=== PATIENT | female | born 1940 | race Caucasian/White ===

== ENCOUNTER 2019-06-12 14:07 | Inpatient (IN) | payer MEDICARE, OTHER, SELFPAY ==
[2019-06-12] VITALS (61 sets, daily range): BP systolic 85–149; BP diastolic 52–106; PULSE 68–156; RESP 14–35; TEMP 36.4; O2SAT 77–98; BMI 41.1
--- NOTE | 2019-06-12 14:17 | ECG_ITS ---
Measurements Intervals [place] Rate: 155 P: GA: 0 QRS: 28 QRSD: 79 T: -5 QT: 273 QTc: 439 ATRIAL FIBRILLATION WITH RAPID VENTRICULAR RESPONSE LOW QRS VOLTAGE [QRS DEFLECTION < 0.5/1.0 mV IN LIMB/CHEST LEADS] POSSIBLE ANTERIOR MYOCARDIAL INFARCTION , PROBABLY OLD [30 ms Q WAVE IN V3/V4, OR R < 0.2 mV IN V4] CRITICAL TEST RESULT No previous ECG available for comparison Electronically Signed On 06-12-2019 18:24:47 CDT by Ran Hauser M.D. [id number]
--- NOTE | 2019-06-12 14:17 | XR_ITS ---
WS: [id number] XR chest 1V portable [id number] REASON FOR EXAM: sob FINDINGS: Cardiomegaly is noted. There is scarring in both lung storm but no active pneumonia, pleural effusion, pulmonary edema, or mass effect. The hilum and apices are normal. There is postop changes in the region of the thyroid on the left side. XR/XR chest 1V portable [id number] IMPRESSION: Cardiomegaly
--- NOTE | 2019-06-12 14:23 | ED_ITS ---
HPI - SOB/Dyspnea General: Chief Complaint: Shortness of Breath/Dyspnea Stated Complaint: sob,weakness,swelling,diarrhea Time Seen by Provider: 06/12/19 14:19 Source: patient Mode of arrival: ambulatory Limitations: no limitations History of Present Illness: HPI Narrative: 79-year-old female with a history of congestive heart failure states she has been having lower extremity edema along with increased weight gain and shortness of breath over the last week. She states that over the last day or 2 she is also had diffuse abdominal pain she rates an 8 out of 10. Patient does have quite a bit of swelling here and is in A. fib which is new onset. She denies any chest pain or fever. MD elicited complaint: shortness of breath Associated symptoms: Reports abdominal pain; Deny chest pain or fever(s) Review of Systems Const: Denies: fever, chills, body aches or change in appetite Eyes: Denies: blurry vision or eye discomfort ENMT: Denies: throat pain or dental pain Card: Denies: chest pain Resp: Reports: shortness of breath GI: Reports: abdominal pain : Denies: painful urination Musc: Reports: joint swelling Skin/Breast: Denies: rash Neuro: Denies: headache Psych: Denies: depression Alex/Lymph: Denies: easy bruising All/Imm: Denies: hives PFSH ED PFSH: Medical History Hypothyroid Social History Smoking and tobacco status: former smoker Quit status (tobacco): has quit using tobacco Year quit tobacco: 40 years ago Second hand smoke exposure: No Alcohol intake: never Lives independently: No Household members: children Physical Exam Const: COMMON NORMALS: no apparent distress, oriented x3 and healthy appearing HENMT: COMMON NORMALS: normocephalic and head/scalp atraumatic HEAD & SCALP: normocephalic and atraumatic Eye: COMMON NORMALS: PERRL and EOMs intact bilaterally PUPIL: Yes PERRL Neck/C-Spine: COMMON NORMALS: full ROM and supple Chest: COMMONS NORMALS: inspection of chest normal and palpation of chest normal Resp: COMMON NORMALS: normal respiratory effort, no retractions, no use of accessory muscles and clear to auscultation bilaterally AUSCULTATION: clear to auscultation bilaterally Cardio: COMMON NORMALS: no murmurs RATE: tachycardic RHYTHM: abnormal rhythm irregularly irregular GI: COMMON NORMALS: normal to inspection, nondistended, normoactive bowel sounds, soft to palpation and no masses PALPATION: Yes soft and Yes tender Extremity: COMMON NORMALS: normal to inspection and full ROM NARRATIVE EXTREMITY EXAM: 2+ edema Neuro: COMMON NORMALS: oriented x3, moves all extremities and no focal motor deficits Psych: COMMON NORMALS: mental status grossly normal, thought process normal and cooperative THOUGHT PROCESS: normal thought process Skin: COMMON NORMALS: no rashes or lesions noted and no wounds GENERAL SKIN EXAM: no rashes or lesions noted Course Vital Signs: Vital signs: Vital Signs Temperature 97.6 F 06/12/19 14:14 Pulse Rate 156 H 06/12/19 14:14 Respiratory Rate 20 H 06/12/19 14:14 Blood Pressure 129/87 06/12/19 14:14 Pulse Oximetry 90 06/12/19 14:14 MDM - SOB/Dyspnea MDM Narrative: Medical decision making narrative: Patient presents here with shortness of breath with likely CHF exacerbation she does have edema in her lower extremities along with effusions. Patient given Lasix here. She also has new onset A. fib with improved heart rate on Cardizem drip. Spoke to Dr. zhang who will admit. Lab Data: Labs: Lab Results 06/12/19 06/12/19 06/12/19 Range/Units 14:31 14:57 15:15 WBC 9.4 (4.0-10.0) 10^3/ uL RBC 4.55 (4.1-5.3) 10^6/u L Hgb 12.2 (11.5-15.3) g/dL Hct 41.2 (37.0-47.0) % MCV 90.5 (81-99) fL MCH 26.8 L (28.0-34.0) pg MCHC 29.6 L (30.0-36.0) g/dL RDW 14.8 (12.1-15.1) % Plt Count 333 (130-400) 10^3/c mm MPV 11.5 H (7.4-10.4) fL Neut % (Auto) 79.0 % Lymph % (Auto) 13.7 % Archer % (Auto) 6.7 % Eos % (Auto) 0.0 % Baso % (Auto) 0.2 % Neut # (Auto) 7.4 (1.8-7.7) 10^3/u L Lymph # (Auto) 1.3 (0.8-4.8) 10^3/u L Archer # (Auto) 0.6 (0.2-0.9) 10^3/u L Eos # (Auto) 0.0 (0.0-0.8) 10^3/u L Baso # (Auto) 0.0 (0.0-0.1) 10^3/u L Nucleated RBC % (a uto) 0 % Nucleated RBCs # 0.0 /100WBC Sodium (136-145) mmol/L Potassium (3.5-5.1) mmol/L Chloride (98-107) mmol/L Carbon Dioxide (22-29) mmol/L Anion Gap (5-19) BUN (8-23) mg/dL Creatinine (0.5-0.9) mg/dL Glucose (65-115) mg/dL Calculated Osmolal ity (285-295) mOsm/k g Lactic Acid (Sepsi s) 1.3 (0.5-2.2) mmol/L Calcium (8.5-10.5) mg/dL Total Bilirubin (0.15-1.2) mg/dL AST (0-32) U/L ALT (0-33) U/L Alkaline Phosphata se (35-105) IU/L Troponin T Baselin e 26 H (0-10) ng/mL NT-Pro-B Natriuret Pep (0-450) pg/mL Total Protein (6.6-8.7) g/dL Albumin (3.5-5.2) g/dL Globulin (1.3-4.6) g/dL 06/12/19 Range/Units 15:15 WBC (4.0-10.0) 10^3/ uL RBC (4.1-5.3) 10^6/u L Hgb (11.5-15.3) g/dL Hct (37.0-47.0) % MCV (81-99) fL MCH (28.0-34.0) pg MCHC (30.0-36.0) g/dL RDW (12.1-15.1) % Plt Count (130-400) 10^3/c mm MPV (7.4-10.4) fL Neut % (Auto) % Lymph % (Auto) % Archer % (Auto) % Eos % (Auto) % Baso % (Auto) % Neut # (Auto) (1.8-7.7) 10^3/u L Lymph # (Auto) (0.8-4.8) 10^3/u L Archer # (Auto) (0.2-0.9) 10^3/u L Eos # (Auto) (0.0-0.8) 10^3/u L Baso # (Auto) (0.0-0.1) 10^3/u L Nucleated RBC % (a uto) % Nucleated RBCs # /100WBC Sodium 127 L (136-145) mmol/L Potassium 5.0 (3.5-5.1) mmol/L Chloride 87 L (98-107) mmol/L Carbon Dioxide 27 (22-29) mmol/L Anion Gap 18.0 (5-19) BUN 17 (8-23) mg/dL Creatinine 0.9 (0.5-0.9) mg/dL Glucose 107 (65-115) mg/dL Calculated Osmolal ity 261 L (285-295) mOsm/k g Lactic Acid (Sepsi s) (0.5-2.2) mmol/L Calcium 9.7 (8.5-10.5) mg/dL Total Bilirubin 0.9 (0.15-1.2) mg/dL AST 25 (0-32) U/L ALT 21 (0-33) U/L Alkaline Phosphata se 129 H (35-105) IU/L Troponin T Baselin e (0-10) ng/mL NT-Pro-B Natriuret Pep 3006 H (0-450) pg/mL Total Protein 7.9 (6.6-8.7) g/dL Albumin 3.8 (3.5-5.2) g/dL Globulin 4.1 (1.3-4.6) g/dL Imaging Data^: CXR: Radiologist's impression: [place] [address] XRay Report Signed Patient: Kimberley Mendoza Unit #: [id number] : 1940 Age/Sex: 79 / F ADM Date: 06/12/19 Loc: ER Room/Bed: Attending Dr: Ordering Provider/Ordering MD: Stephane Sam MD Date of Service: 06/12/19 Procedure(s): XR chest 1V portable [id number] Accession Number(s): [id number] Report Number: [id number] WS: [id number] XR chest 1V portable [id number] REASON FOR EXAM: sob FINDINGS: Cardiomegaly is noted. There is scarring in both lung storm but no active pneumonia, pleural effusion, pulmonary edema, or mass effect. The hilum and apices are normal. There is postop changes in the region of the thyroid on the left side. XR/XR chest 1V portable [id number] IMPRESSION: Cardiomegaly CT Abd/Pel: Attestation: I personally reviewed and interpreted this imaging study as follows: Radiologist's impression: [place] [address] CT Scan Report Signed Patient: Kimberley Mendoza Unit #: [id number] : 1940 Age/Sex: 79 / F ADM Date: 06/12/19 Loc: ER Room/Bed: Attending Dr: Ordering Provider/Ordering MD: Stephane Sam MD Date of Service: 06/12/19 Procedure(s): CT abdomen pelvis w con* [id number] Accession Number(s): [id number] Report Number: [id number] PROCEDURE INFORMATION: Exam: CT Abdomen And Pelvis With Contrast Exam date and time: 06/12/2019 4:20 PM Age: 79 years old Clinical indication: Abdominal pain; Generalized; Prior surgery; Surgery date: 6+ months; Surgery type: Gb/appy/hyst; Additional info: Abd pain diffused TECHNIQUE: Imaging protocol: Computed tomography of the abdomen and pelvis with intravenous contrast. Radiation optimization: All CT scans at this facility use at least one of these dose optimization techniques: automated exposure control; mA and/or kV adjustment per patient size (includes targeted exams where dose is matched to clinical indication); or iterative reconstruction. Contrast material: OMNI 300; Contrast volume: 95 ml; Contrast route: IV; COMPARISON: No relevant prior studies available. RADIATION DOSE METRICS: Total DLP: 1831.22 mGy-cm FINDINGS: Lungs: Calcified granuloma in the right lower lobe. Pleural space: Medium right and small left pleural effusions. Mild atelectasis. Liver: Diffuse fatty infiltration of the liver. Slightly nodular contour. Gallbladder and bile ducts: Cholecystectomy. The bile ducts are normal. Pancreas: Normal. No ductal dilation. Spleen: Normal. No splenomegaly. Adrenals: Normal. No mass. Kidneys and ureters: 1.4 cm fluid density benign cyst in the right kidney. No follow-up recommended. The left kidney is normal. Stomach and bowel: Mild wall edema in the proximal duodenum. The stomach , small bowel, and colon are otherwise unremarkable. Appendix: No evidence of appendicitis. Intraperitoneal space: Mild ascites. No free air. Vasculature: Retroaortic left renal vein. Lymph nodes: Unremarkable. No enlarged lymph nodes. Bladder: Unremarkable as visualized. Reproductive: The uterus is absent. The ovaries are absent or small in size. Bones/joints: Degenerative spine. No compression fracture. Soft tissues: Diffuse body wall edema. CT/CT abdomen pelvis w con* [id number] IMPRESSION: 1. Fatty infiltration and possible cirrhosis of the liver. Clinical correlation recommended. 2. Anasarca including pleural effusions, mild ascites, and diffuse body wall edema. 3. Mild fluid surrounding the proximal duodenum could relate to the patient's ascites. Mild duodenitis or peptic ulcer disease is not excluded. COMMENTS: Consistent with the [employer]'s Incidental Findings Committee white paper (J Am Ana Maria Radiol 2018): Any incidental cystic renal lesion classified in this report as too small to characterize or simple appearing is likely a benign cyst. No follow-up imaging is recommended for these lesions per consensus recommendations based on imaging criteria. EKG Data^: EKG 1: Attestation: I personally reviewed and interpreted this EKG as follows: EKG Interpretation Date: 06/12/19 EKG interpretation time: 14:25 Interpretation: afib with rvr hr [address] or t wave abnormalities EKG 2: Attestation: I personally reviewed and interpreted this EKG as follows: EKG Interpretation Date: 06/12/19 EKG interpretation time: 17:14 Interpretation: afib hr [address] or t wave abnormalities Critical Care Time Critical Care Time: Critical Care Time: Yes Total Critical Care Time: 36 Attestation: This case had a high probability of a clinically significant, sudden, or life threatening deterioration of this patient's condition which required my full and direct attention, intervention and personal management. Discharge Plan Discharge Prescriptions: No Action omeprazole 20 mg capsule,delayed release(DR/EC) 20 mg PO DAILY RF: 0 furosemide [Lasix] 20 mg tablet 20 mg PO DAILY Qty: 7 RF: 0 levofloxacin [Levaquin] 750 mg tablet 750 mg PO DAILY Qty: 5 RF: 0 aspirin 325 mg Tablet 325 mg PO DAILY RF: 0 Tylenol Extra Strength 500 mg Tablet 500 mg PO BID RF: 0 Carditone 1 tab PO EVERY OTHER DAY RF: 0 Referrals: Sudha Jeffers MD [Primary Care Provider] - Coding Level of Care Code ED Nailing Machine Feeder for Chg Fwd Exam Comprehensive
[2019-06-12 15:07] LABS: Basophils % 0.2 %; Hematocrit 41.2 % (37.0-47.0); Hemoglobin 12.2 g/dL (11.5-15.3); Lymphocytes # 1.3 10^3/uL (0.8-4.8); Lymphocytes % 13.7 %; Mean Corpuscular HGB Conc 29.6 g/dL (30.0-36.0); Mean Corpuscular Hemoglobin 26.8 pg (28.0-34.0); Mean Corpuscular Volume 90.5 fL (81-99); Mean Platelet Volume 11.5 fL (7.4-10.4); Monocytes # 0.6 10^3/uL (0.2-0.9); Monocytes % 6.7 %; Neutrophils # 7.4 10^3/uL (1.8-7.7); Nucleated Red Blood Cells % 0 %; Platelet Count 333 10^3/cmm (130-400); Red Blood Count 4.55 10^6/uL (4.1-5.3); Red Cell Distribution Width 14.8 % (12.1-15.1); White Blood Count 9.4 10^3/uL (4.0-10.0)
[2019-06-12 15:10] LABS: Lactic Acid level (Lactate) 1.3 mmol/L (0.5-2.2)
[2019-06-12 16:01] LABS: Troponin(5th) Baseline 26 ng/mL (0-10)
[2019-06-12 16:04] LABS: Alanine Aminotransferase 21 U/L (0-33); Albumin Level 3.8 g/dL (3.5-5.2); Alkaline Phosphatase 129 IU/L (35-105); Aspartate Amino Transferase 25 U/L (0-32); Blood Urea Nitrogen 17 mg/dL (8-23); Calcium 9.7 mg/dL (8.5-10.5); Carbon Dioxide 27 mmol/L (22-29); Chloride 87 mmol/L (98-107); Globulin 4.1 g/dL (1.3-4.6); Glucose 107 mg/dL (65-115); NT Pro B Type Natriuretic Pept 3006 pg/mL (0-450); Osmolality Calculated 261 mOsm/kg (285-295); Sodium 127 mmol/L (136-145); Total Bilirubin 0.9 mg/dL (0.15-1.2); Total Protein 7.9 g/dL (6.6-8.7)
--- NOTE | 2019-06-12 16:17 | ECG_ITS ---
Measurements Intervals [place] Rate: 117 P: AL: 0 QRS: 11 QRSD: 68 T: 2 QT: 310 QTc: 433 ATRIAL FIBRILLATION WITH RAPID VENTRICULAR RESPONSE LOW QRS VOLTAGE IN EXTREMITY LEADS [QRS DEFLECTION < 0.5 mV IN LIMB LEADS] ANTEROSEPTAL MYOCARDIAL INFARCTION , OF INDETERMINATE AGE [40+ ms Q WAVE IN V1-V4] No previous ECG available for comparison Electronically Signed On 06-12-2019 18:27:41 CDT by Ran Hauser M.D. [email or web address]
[2019-06-12] MEDS: FUROsemide 10 mg/mL SDV 4mL 40 MG IVP (16:30)
[2019-06-12] MEDS: iohexol 300 mg/mL 100 mL Btl IV (16:50)
--- NOTE | 2019-06-12 17:41 | PC.NURSE ---
FLORY PADILLA ARRIVED TO TOOL DISPATCHER PATIENT
[2019-06-12 18:04] LABS: Troponin 5 2HR 25.92 ng/mL (0-10)
[2019-06-12 18:07] LABS: Troponin 5 2HR Delta -0.08 ABS# (0-10)
--- NOTE | 2019-06-12 18:23 | PM.HP ---
Providers/Chief Complaint Admitting Physician: Pilar Bolton DO Primary Care Provider: Sudha Jeffers MD Chief Complaint: sob,weakness,swelling,diarrhea History of Present Illness Kimberley Mendoza is a 79 year old female the past medical history of hypothyroidism that presented to the emergency department today for increasing shortness of breath. Patient reports that she moved here 1 year ago and stopped taking all medications. She presented to the ED today for worsening shortness of breath, this is been progressive to the point where she could no longer tolerate her symptoms. Patient reports that shortness of breath has been progressive over the past 2 weeks. She stated that she has been having dyspnea on exertion and dry nonproductive cough. She denies any fevers or chills. Patient reports that she had previously been on a diuretic but has not been taking it for over a year. She denies any history of heart disease or CHF. Patient reports that she has been transitioning to all natural medications and has no longer been taking her thyroid medication or high blood pressure medications. Patient reports the only medication she has been taking that is [id number] is omeprazole along with a probiotic aspirin and herbal supplements. She does report diarrhea over the past 2 months that is continued to progress as well as some vague epigastric discomfort. Patient reports that she is on well water, no other sick contacts. Patient was seen and evaluated in the emergency department noted to have concern for atrial fibrillation with RVR started on a Cardizem drip. She was given IV Lasix x1 due to concern for fluid overload Review of Systems Const: Denies: fever or chills Eyes: Denies: change in vision ENMT: Denies: nasal congestion Card: Reports: palpitations and edema; Denies: chest pain Resp: Reports: shortness of breath; Denies: productive cough or coughing up blood GI: Reports: abdominal pain and diarrhea; Denies: nausea, vomiting, constipation, blood in stool or black tarry stool : Denies: painful urination or blood in urine Musc: Denies: extremity pain or muscle cramps Skin/Breast: Denies: rash or new lesion Neuro: Denies: headache or dizziness Psych: Denies: anxiety or depression Endo: Denies: excessive urination or hot flashes Alex/Lymph: Denies: easy bruising or easy bleeding Medications/Allergies Home Medications Medication Instructions Recorded Confirmed Last Taken Type Carditone 1 tab PO EVERY OTHER DAY 06/12/19 06/12/19 06/11/19 History acetaminophen [Tylenol Extra 500 mg PO BID 06/12/19 06/12/19 06/11/19 History Strength] aspirin 325 mg PO DAILY 06/12/19 06/12/19 Unknown History furosemide 20 mg tablet 20 mg PO DAILY #7 tab 06/12/19 06/12/19 Unknown Rx levofloxacin 750 mg tablet 750 mg PO DAILY #5 tab 06/12/19 06/12/19 Unknown Rx omeprazole 20 mg capsule,delayed 20 mg PO DAILY 06/12/19 06/12/19 06/11/19 History release Allergies Allergy/AdvReac Type Severity Reaction Status Date / Time pork derived (porcine) Allergy Unknown Verified 06/12/19 15:04 Pork/Porcine Containing Allergy Unknown Verified 06/12/19 15:04 Products PFSH Acute PFSH: Medical History Cervical cancer Hypertension Hypothyroid Obstructive sleep apnea Surgical History History of cataract surgery History of cholecystectomy History of knee replacement Right History of thyroid surgery History of umbilical hernia repair History of ventral hernia repair S/P hysterectomy Family History Brother Cancer Father Cancer Gastric Social History Smoking and tobacco status: former smoker Quit status (tobacco): has quit using tobacco Year quit tobacco: 40 years ago Second hand smoke exposure: No Alcohol intake: never Lives independently: No Household members: children Supplemental PFSH Information: [place] Vitals/I&O/Wt Last Vital Signs Temp 97.6 F 06/12/19 14:14 Pulse 156 H 06/12/19 14:14 Resp 20 H 06/12/19 14:14 BP 129/87 06/12/19 14:14 Pulse Ox 90 06/12/19 14:14 06/12/19 06/12/19 06/12/19 06:59 14:59 22:59 Intake Total 2.083 / 2.083 Balance 2.083 / 2.083 Weight last 48 hrs Weight 108.862 kg Physical Exam Const: COMMON NORMALS: oriented x3 and alert GENERAL APPEARANCE: cooperative ORIENTATION/CONSCIOUSNESS: Yes awake, Yes oriented to person, Yes oriented to place and Yes oriented to time HENMT: COMMON NORMALS: normocephalic and head/scalp atraumatic HEAD & SCALP: normocephalic and atraumatic Eye: COMMON NORMALS: PERRL PUPIL: Yes PERRL Neck/C-Spine: COMMON NORMALS: supple GENERAL: Yes normal visual inspection Resp: EFFORT & INSPECTION: Yes tachypneic Cardio: OTHER: Irregularly irregular, tachycardic GI: COMMON NORMALS: soft to palpation and non-tender INSPECTION: No abdominal distension AUSCULTATION: Yes normoactive bowel sounds PALPATION: Yes soft Back/Pelvis: COMMON NORMALS: no CVA tenderness Extremity: COMMON NORMALS: no calf tenderness GENERAL: Yes edema (2+ pitting edema in the LE bilaterally) Neuro: COMMON NORMALS: oriented x3, CN's II-XII intact bilaterally, moves all extremities and no focal motor deficits SENSORIUM/ORIENTATION: Yes alert, Yes oriented to person, Yes oriented to place and Yes oriented to time SPEECH: speech normal Psych: COMMON NORMALS: mental status grossly normal and cooperative Skin: COMMON NORMALS: no rashes or lesions noted GENERAL SKIN EXAM: no rashes or lesions noted Data : 06/12/19 14:57 06/12/19 15:15 A&P Assessment and plan (1) Atrial fibrillation with RVR: New onset Afib Started on cardizem in the ED, will transition off and give metoprolol at this time due to underlying CHF exacerbation ECHO ordered to evaluate further TSH ordered, previously on levothyroxine, however discontinued 1 year ago Treatment dose Lovenox Status: Acute (2) Hypothyroid: TSH ordered, previously on levothyroxine, however discontinued 1 year ago Status: Acute (3) Abdominal pain: With CT findings of thickening of duodenum Will start IV PPI and discuss with surgery for EGD once volume status improved Status: Acute (4) Diarrhea: Status: Acute (5) SOB (shortness of breath): Secondary to above, serial EKG and troponin Telemetry Aspiratory therapy to assess and treat, oxygen per protocol Status: Acute (6) Hyponatremia: Will continue diuretics and recheck Status: Acute Additional A&P Information Chronic diarrhea: We will check stool studies, patient is on well water at home. CT scan of the abdomen pelvis shows some concern for thickening in the duodenal region, will continue on IV PPI at this time and consider inpatient EGD once her volume status improved Of note patient has come off of all of her prescription medications in the past year trying to continue on a natural regimen DVT ppx: Currently on treatment dose Lovenox due to above Diet: Cardiac diet Code status: Allow natural , DNR/DNI Attestations Medical Necessity Statement*: Patient requires hospitalization due to new onset atrial fibrillation with RVR, abdominal pain and diarrhea. Expected stay greater than 2 midnights Coding Level of Care Code Acute Concrete Pavement Installer for Chg Fwd Exam Comprehensive Diagnoses Atrial fibrillation with RVR I48.91 Hypothyroid E03.9 Abdominal pain R10.9 Diarrhea R19.7 SOB (shortness of breath) R06.02 Hyponatremia E87.1
[2019-06-12 18:58] LABS: Thyroid Stimulating Hormone 2.59 uIU/mL (0.27-4.20)
--- NOTE | 2019-06-12 19:10 | PC.NURSE ---
Report received from MILTON Garcia and care transferred to MILTON Dueñas
[2019-06-12] MEDS: metoprolol tartrate 1 mg/1 mL SDV 5 mL 5 MG IV (21:20)
[2019-06-12 21:50] LABS: Troponin 5 6HR 31.92 ng/mL (0-10); Troponin 5 6HR Delta 5.92 ng/L (0-12)
[2019-06-12] MEDS: enoxaparin 120 mg/0.8 mL Syringe 110 MG SUBCUT (23:54)
[2019-06-12] MEDS: pantoprazole 40 mg SDV IVP (23:54)
[2019-06-13] VITALS (65 sets, daily range): BP systolic 97–155; BP diastolic 56–101; PULSE 67–131; RESP 11–31; TEMP 36.4–36.7; O2SAT 77–100
[2019-06-13] MEDS: albuterol 8 gm MDI 2 PUFF INHALATION ×2 (02:49→22:30)
[2019-06-13 04:41] LABS: Basophils % 0.3 %; Eosinophils % 0.4 %; Hematocrit 39.3 % (37.0-47.0); Hemoglobin 11.6 g/dL (11.5-15.3); Lymphocytes # 1.5 10^3/uL (0.8-4.8); Lymphocytes % 15.9 %; Mean Corpuscular HGB Conc 29.5 g/dL (30.0-36.0); Mean Corpuscular Hemoglobin 27.6 pg (28.0-34.0); Mean Corpuscular Volume 93.6 fL (81-99); Monocytes # 0.8 10^3/uL (0.2-0.9); Monocytes % 8.7 %; Neutrophils % 74.3 %; Nucleated Red Blood Cells % 0 %; Platelet Count 271 10^3/cmm (130-400); White Blood Count 9.4 10^3/uL (4.0-10.0)
[2019-06-13] MEDS: FUROsemide 10 mg/mL SDV 4mL 40 MG IVP ×2 (04:57→16:31)
[2019-06-13 05:07] LABS: Anion Gap 18.7 (5-19); Blood Urea Nitrogen 16 mg/dL (8-23); Carbon Dioxide 24 mmol/L (22-29); Chloride 90 mmol/L (98-107); Glucose 85 mg/dL (65-115); Osmolality Calculated 262 mOsm/kg (285-295); Potassium 4.7 mmol/L (3.5-5.1); Sodium 128 mmol/L (136-145)
[2019-06-13 05:42] LABS: Cholesterol 109 mg/dL (0-200); HDL Cholesterol 42 mg/dL (60-100); LDL Cholesterol Calculated 57 mg/dL (50-129); LDL HDL Ratio 1.36 RATIO (0.00-3.22); Triglycerides 51 mg/dL (0-150)
--- NOTE | 2019-06-13 07:00 | USCV_ITS ---
Kimberley Mendoza Age: 79 Gender: F : 1940 Exam Date: 06/13/2019 08:37 Ordering Phys: Pilar Bolton DO Technologist: Shahana Horn Exam Location: [facility] [place] Indication: AFIB BP: / HR: 103 Rhythm: Atrial fibrillation Technical Quality: Suboptimal MEASUREMENTS (Male / Female) Normal Values 2D ECHO LV Diastolic Diameter PLAX 3.6 cm 4.2 - 5.9 / 3.9 - 5.3 cm LV Systolic Diameter PLAX 3.3 cm LV Chamber Size 2.9 cm IVS Diastolic Thickness 1.0 cm 0.6 - 1.0 / 0.6 - 0.9 cm IVS Systolic Thickness 0.8 cm LVPW Diastolic Thickness 2.3 cm 0.6 - 1.0 / 0.6 - 0.9 cm LVPW Systolic Thickness 2.4 cm RV Chamber Size 2.8 cm LVOT Diameter 2.0 cm LV Ejection Fraction 2D Teich 23.4 % LV Ejection Fraction MOD 2C 54.0 % LV Ejection Fraction 2C AL 53.4 % LA Diameter 4.8 cm LA Width 3.8 cm LA Height 6.1 cm RA Width 3.7 cm RA Height 4.2 cm Aorta at Sinotubular Diameter 2.1 cm M-MODE LV Diastolic Diameter MM 5.0 cm 4.2 - 5.9 / 3.9 - 5.3 cm LV Systolic Diameter MM 3.8 cm LV Ejection Fraction MM Teich 48.6 % IVS Diastolic Thickness MM 0.7 cm 0.6 - 1.0 / 0.6 - 0.9 cm IVS Systolic Thickness MM 0.9 cm LVPW Diastolic Thickness MM 0.7 cm 0.6 - 1.0 / 0.6 - 0.9 cm LVPW Systolic Thickness MM 1.2 cm Aortic Annulus Diameter 2.6 cm LA Ao Ratio MM 1.9 MV E Point Septal Separation 1.2 cm DOPPLER AV Peak Velocity 129.0 cm/s LVOT Peak Velocity 78.0 cm/s AV Area Cont Eq vti 2.4 cm squared AV Area Cont Eq pk 1.9 cm squared MV Area PHT 3.3 cm squared Mitral E to A Ratio 6.2 MV E' Velocity 15.0 cm/s Mitral E to MV E' Ratio 11.0 Mitral E to LV E' Lateral Ratio 10.1 Mitral E to LV E' Septal Ratio 12.1 TR Peak Velocity 223.0 cm/s TR Peak Gradient 19.9 mmHg TR Mean Velocity 185.8 cm/s TR Mean Gradient 16.9 mmHg TR Velocity Time Integral 79.7 cm TV Peak E Velocity 44.0 cm/s Right Atrial Pressure 3.0 mmHg Pulmonary Artery Systolic Pressu 22.9 mmHg PV Peak Velocity 58.0 cm/s RV Acceleration Time 0.1 s RV Ejection Time 0.3 s RV AcT/ET 0.4 FINDINGS Left Ventricle The rhythm appears to be atrial fibrillation with a rapid ventricular response which decreases the sensitivity of the exam. The ventricle is probably normal in size and thickness. There are no obvious wall motion disturbances however in some views the anterior wall appears mildly sluggish. The overall left ventricular function is probably lower limit of normal. A very rough estimate of the ejection fraction is 50 to 55%. Diastolic function cannot be determined due to the atrial fibrillation. Right Ventricle Normal right ventricular size and systolic function. Normal right ventricular systolic pressure. Right Atrium Moderately increased right atrial size. Left Atrium Moderately increased left atrial size. Mitral Valve Mitral valve not well visualized. Structurally normal mitral valve. Mild mitral valve regurgitation. Aortic Valve Aortic valve not well visualized. Tricuspid Valve Structurally normal tricuspid valve. Tricuspid valve not well visualized. Trace to mild tricuspid valve regurgitation. Pulmonic Valve Pulmonic valve not well visualized. Pericardium Normal pericardium without effusion. Aorta Normal ascending aorta dimension. CONCLUSIONS The rhythm appears to be atrial fibrillation with a rapid ventricular response which decreases the sensitivity of the exam. The ventricle is probably normal in size and thickness. There are no obvious wall motion disturbances however in some views the anterior wall appears mildly sluggish. The overall left ventricular function is probably lower limit of normal. A very rough estimate of the ejection fraction is 50 to 55%. Diastolic function cannot be determined due to the atrial fibrillation. Moderately increased right atrial size. Moderately increased left atrial size. Mitral valve not well visualized. Structurally normal mitral valve. Mild mitral valve regurgitation. There are no prior echocardiogram studies to compare. Dr. Kurtis Mcmillan MD (Electronically Signed) Final Date: 13 Jun 2019 09:52 S
[2019-06-13] MEDS: metoprolol tartrate 25 mg Tablet PO (08:32)
[2019-06-13] MEDS: acetaminophen 500 mg Tablet PO ×2 (08:33→17:39)
[2019-06-13] MEDS: lisinopril 2.5 mg Tablet PO (08:33)
--- NOTE | 2019-06-13 08:52 | P.PN_ITS ---
Subjective Subjective: Interval history: Patient awake in bed at time of exam eating breakfast. She reported that she is feeling much better today. Chest pain and shortness of breath have improved. She denies any abdominal pain. Reported to small amount of loose stool this morning, no nausea or vomiting. Vitals/I&O/Wt Last Vital Signs Temp 97.5 F L 06/12/19 23:15 Pulse 120 H 06/13/19 08:30 Resp 23 H 06/13/19 08:30 BP 130/82 06/13/19 08:00 Pulse Ox 77 L 06/13/19 08:30 06/12/19 06/13/19 06/13/19 22:59 06:59 14:59 Intake Total 33.416 / 33.416 460 / 460 Output Total 1250 / 1250 560 / 560 Balance 33.416 / 33.416 -1250 / -1216.584 -100 / -100 Weight last 48 hrs Weight 109.769 kg Weight 108.862 kg Physical Exam Const: COMMON NORMALS: oriented x3 and alert GENERAL APPEARANCE: coopera tive ORIENTATION/CONSCIOUSNESS: Yes awake, Yes oriented to person, Yes oriented to place and Yes oriented to time HENMT: COMMON NORMALS: normocephalic and head/scalp atraumatic HEAD & SCALP: normocephalic and atraumatic Eye: COMMON NORMALS: PERRL PUPIL: Yes PERRL Neck/C-Spine: COMMON NORMALS: supple GENERAL: Yes normal visual inspection Resp: EFFORT & INSPECTION: Yes tachypneic Cardio: OTHER: Irregularly irregular, tachycardic GI: COMMON NORMALS: soft to palpation and non-tender INSPECTION: No abdominal distension AUSCULTATION: Yes normoactive bowel sounds PALPATION: Yes soft Extremity: COMMON NORMALS: no calf tenderness GENERAL: Yes edema (1+ pitting edema bilaterally, improved) Neuro: COMMON NORMALS: oriented x3, CN's II-XII intact bilaterally, moves all extremities and no focal motor deficits SENSORIUM/ORIENTATION: Yes alert, Yes oriented to person, Yes oriented to place and Yes oriented to time SPEECH: speech normal Psych: COMMON NORMALS: mental status grossly normal and cooperative Skin: COMMON NORMALS: no rashes or lesions noted GENERAL SKIN EXAM: no rashes or lesions noted Data : 06/13/19 04:15 06/13/19 04:15 A&P Assessment and plan (1) Atrial fibrillation with RVR: New onset atrial fibrillation Echocardiogram ordered and pending Increase metoprolol to 50 mg twice daily TSH within normal limits Continue on treatment dose Lovenox and transition to oral prior to discharge Status: Acute (2) Hypothyroid: TSH within normal limits at time of admission, previously on levothyroxine but no longer taking Status: Acute (3) Abdominal pain: Continue IV PPI Once heart rate and oxygen requirements stable consider possible inpatient versus outpatient EGD Status: Acute (4) Diarrhea: Stool studies ordered and pending Patient on well water, reports chronic diarrhea Status: Acute (5) SOB (shortness of breath): Improved with diuresis Status: Acute (6) Hyponatremia: Will continue diuretics and recheck Status: Acute Additional A&P Information Concern for underlying congestive heart failure, unspecified: Continue with IV Lasix, started lisinopril 2.5 mg daily, metoprolol, will start on aspirin and statin. ECHO pending Of note patient has come off of all of her prescription medications in the past year trying to continue on a natural regimen DVT ppx: Currently on treatment dose Lovenox due to above Diet: Cardiac diet Code status: Allow natural , DNR/DNI Attestations Medical Necessity Statement*: Patient requires further hospitalization due to new onset atrial fibrillation with RVR and concern for CHF exacerbation requiring further medication adjustments and diuresis. Coding Level of Care Code Acute Litigation Examiner for Chg Fwd Diagnoses Atrial fibrillation with RVR I48.91 Hypothyroid E03.9 Abdominal pain R10.9 Diarrhea R19.7 SOB (shortness of breath) R06.02 Hyponatremia E87.1
[2019-06-13] MEDS: metoprolol tartrate 50 mg Tablet PO ×2 (10:00→17:39)
[2019-06-13] MEDS: aspirin 81 mg EC Tablet PO (10:00)
[2019-06-13] MEDS: pantoprazole 40 mg SDV IVP ×2 (12:37→23:10)
[2019-06-13] MEDS: enoxaparin 120 mg/0.8 mL Syringe 110 MG SUBCUT ×2 (12:44→23:10)
--- NOTE | 2019-06-13 15:36 | PC.NURSE ---
Patient's daughter Jessica Odonnell called and is requesting that the hospitalist call and discuss her Electrocardiogram and CAT scan with her. Will notify Dr. Bolton.
[2019-06-13] MEDS: atorvastatin 40 mg Tablet PO (23:11)
[2019-06-14] VITALS (14 sets, daily range): BP systolic 90–102; BP diastolic 50–67; PULSE 62–99; RESP 16–20; TEMP 36.4–36.8; O2SAT 92–98
[2019-06-14] MEDS: albuterol 8 gm MDI 2 PUFF INHALATION ×5 (02:50→21:23)
--- NOTE | 2019-06-14 07:57 | PC.NURSE ---
patients upper arm iv was occluded, and her hand iv leaked. both were removed. 4 nurses attempted 6 times to get access and none was achieved. patient is very dehydrated. 6 needles used, 2 j-loops, numerous alcohol pads, 4 2x2s.
[2019-06-14] MEDS: metoprolol tartrate 50 mg Tablet PO ×2 (09:57→17:32)
[2019-06-14] MEDS: acetaminophen 500 mg Tablet PO ×2 (09:57→17:32)
[2019-06-14] MEDS: lisinopril 2.5 mg Tablet PO (09:57)
[2019-06-14] MEDS: aspirin 81 mg EC Tablet PO (09:57)
[2019-06-14] MEDS: FUROsemide 40 mg Tablet PO (09:57)
[2019-06-14 11:05] LABS: Basophils % 0.3 %; Eosinophils # 0.1 10^3/uL (0.0-0.8); Eosinophils % 0.8 %; Hemoglobin 10.6 g/dL (11.5-15.3); Lymphocytes # 1.2 10^3/uL (0.8-4.8); Lymphocytes % 15.9 %; Mean Corpuscular HGB Conc 28.6 g/dL (30.0-36.0); Mean Corpuscular Volume 94.1 fL (81-99); Mean Platelet Volume 11.1 fL (7.4-10.4); Monocytes # 0.7 10^3/uL (0.2-0.9); Monocytes % 8.7 %; Neutrophils # 5.7 10^3/uL (1.8-7.7); Nucleated Red Blood Cells % 0 %; Platelet Count 259 10^3/cmm (130-400); Red Blood Count 3.93 10^6/uL (4.1-5.3); Red Cell Distribution Width 15.1 % (12.1-15.1); White Blood Count 7.6 10^3/uL (4.0-10.0)
[2019-06-14 12:09] LABS: Anion Gap 14.1 (5-19); Blood Urea Nitrogen 21 mg/dL (8-23); Calcium 8.5 mg/dL (8.5-10.5); Carbon Dioxide 31 mmol/L (22-29); Chloride 87 mmol/L (98-107); Glucose 72 mg/dL (65-115); Osmolality Calculated 261 mOsm/kg (285-295); Potassium 4.1 mmol/L (3.5-5.1); Sodium 128 mmol/L (136-145)
[2019-06-14] MEDS: enoxaparin 120 mg/0.8 mL Syringe 110 MG SUBCUT (12:34)
[2019-06-14] MEDS: pantoprazole 40 mg SDV IVP (12:35)
--- NOTE | 2019-06-14 16:13 | PM.PN ---
Subjective Subjective: Interval history: Patient awake sitting at the side of bed in her chair at time of exam today. She reported that her breathing is improved from admission, she reports the palpitations have also improved. Patient reports only slight diarrhea, no diffuse stools, no abdominal pain or tenderness. Discussed with patient plan for continued weaning of oxygen and transitioning to oral diuretics. Discussed with patient the need for an outpatient EGD to further evaluate thickening of the duodenum. Patient verbalized understanding and agreed with plan. Vitals/I&O/Wt Last Vital Signs Temp 97.8 F 06/14/19 11:31 Pulse 62 06/14/19 15:41 Resp 18 06/14/19 15:41 BP 101/62 06/14/19 15:41 Pulse Ox 92 06/14/19 15:41 06/14/19 06/14/19 06/14/19 06:59 14:59 22:59 Intake Total 540 / 540 Output Total 600 / 600 Balance -60 / -60 Weight last 48 hrs Weight 106.594 kg Weight 109.769 kg Physical Exam Const: COMMON NORMALS: oriented x3 and alert GENERAL APPEARANCE: cooperative ORIENTATION/CONSCIOUSNESS: Yes awake, Yes oriented to person, Yes oriented to place and Yes oriented to time HENMT: COMMON NORMALS: normocephalic and head/scalp atraumatic HEAD & SCALP: normocephalic and atraumatic Eye: COMMON NORMALS: PERRL PUPIL: Yes PERRL Neck/C-Spine: COMMON NORMALS: supple GENERAL: Yes normal visual inspection Resp: OTHER: Oxygen by nasal cannula in place, respirations even and unlabored, lungs without any wheezing or rhonchi Cardio: OTHER: Irregularly irregular GI: COMMON NORMALS: soft to palpation and non-tender INSPECTION: No abdominal distension AUSCULTATION: Yes normoactive bowel sounds PALPATION: Yes soft : COMMON NORMALS: Yes no CVA tenderness BLADDER/KIDNEY EXAM: Yes no CVA tenderness Back/Pelvis: COMMON NORMALS: no CVA tenderness Extremity: COMMON NORMALS: no calf tenderness GENERAL: Yes edema (1+ pitting edema bilaterally, improved) Neuro: COMMON NORMALS: oriented x3, CN's II-XII intact bilaterally, moves all extremities and no focal motor deficits SENSORIUM/ORIENTATION: Yes alert, Yes oriented to person, Yes oriented to place and Yes oriented to time SPEECH: speech normal Psych: COMMON NORMALS: mental status grossly normal and cooperative Skin: COMMON NORMALS: no rashes or lesions noted GENERAL SKIN EXAM: no rashes or lesions noted Data : 06/14/19 10:00 06/14/19 11:28 Micro: Microbiology 06/12/19 07:20 Enteric Pathogens (PCR) - Final Stool Parasite Antigen Panel - Final C.difficile Toxin B Gene (PCR) - Final A&P Assessment and plan (1) Atrial fibrillation with RVR: Transition to Eliquis 5 mg twice daily Continue on metoprolol 50 mg twice daily Status: Acute (2) Hypothyroid: TSH within normal limits at time of admission, previously on levothyroxine but no longer taking Status: Acute (3) Abdominal pain: Transition to oral protonix Discussed with Dr. Rivera, patient to be set up for outpatient EGD next week once HR and fluid status improved Status: Acute (4) Diarrhea: Stool studies negative Further evaluate with EGD and possible colonoscopy next week Status: Acute (5) SOB (shortness of breath): Continues to improve Status: Acute (6) Hyponatremia: Will continue diuretics and recheck Status: Acute Additional A&P Information Likely diastolic congestive heart failure with acute exacerbation, transition to oral Lasix, discontinue lisinopril due to renal function Of note patient has come off of all of her prescription medications in the past year trying to continue on a natural regimen DVT ppx: Eliquis Diet: Cardiac diet Code status: Allow natural , DNR/DNI Attestations Medical Necessity Statement*: Patient requires further hospitalization due to concern for atrial fibrillation with RVR and CHF. Medication adjustments today including discontinuation of lisinopril, transitioning to a decreased dose of oral Lasix and close monitoring of renal function due to slight increase today. Coding Level of Care Code Acute Compensation Intern for Chg Fwd Diagnoses Atrial fibrillation with RVR I48.91 Hypothyroid E03.9 Abdominal pain R10.9 Diarrhea R19.7 SOB (shortness of breath) R06.02 Hyponatremia E87.1
[2019-06-14] MEDS: apixaban 5 mg Tablet PO (20:56)
[2019-06-14] MEDS: atorvastatin 40 mg Tablet PO (20:56)
[2019-06-15] VITALS (7 sets, daily range): BP systolic 97–113; BP diastolic 66–75; PULSE 88–98; RESP 18; TEMP 36.7–37.1; O2SAT 95–99
[2019-06-15] MEDS: lidocaine 2% viscous 15 ML, aluminum-mag hydrox-simethicon 30 ML, sucralfate oral liq 1 GM PO (01:21)
[2019-06-15 06:14] LABS: Basophils % 0.4 %; Eosinophils % 0.5 %; Hematocrit 36.4 % (37.0-47.0); Hemoglobin 10.5 g/dL (11.5-15.3); Lymphocytes # 1.8 10^3/uL (0.8-4.8); Lymphocytes % 22.8 %; Mean Corpuscular HGB Conc 28.8 g/dL (30.0-36.0); Mean Corpuscular Hemoglobin 27.2 pg (28.0-34.0); Mean Corpuscular Volume 94.3 fL (81-99); Mean Platelet Volume 11.4 fL (7.4-10.4); Neutrophils # 5.1 10^3/uL (1.8-7.7); Nucleated Red Blood Cells % 0 %; Platelet Count 257 10^3/cmm (130-400); Red Blood Count 3.86 10^6/uL (4.1-5.3); Red Cell Distribution Width 15.4 % (12.1-15.1)
[2019-06-15 06:56] LABS: Anion Gap 16.2 (5-19); Blood Urea Nitrogen 29 mg/dL (8-23); Calcium 8.8 mg/dL (8.5-10.5); Carbon Dioxide 29 mmol/L (22-29); Chloride 90 mmol/L (98-107); Glucose 76 mg/dL (65-115); Osmolality Calculated 266 mOsm/kg (285-295); Potassium 5.2 mmol/L (3.5-5.1); Sodium 130 mmol/L (136-145)
[2019-06-15] MEDS: albuterol 8 gm MDI 2 PUFF INHALATION (08:24)
--- NOTE | 2019-06-15 09:10 | PC.SOCIAL ---
IMM Page 2 of IMM explained to patient. Initialed, dated, and timed and placed in chart. Copy provided to patient.
[2019-06-15] MEDS: metoprolol tartrate 50 mg Tablet PO (09:24)
[2019-06-15] MEDS: acetaminophen 500 mg Tablet PO (09:25)
[2019-06-15] MEDS: pantoprazole DR 40 mg Tablet PO (09:25)
[2019-06-15] MEDS: apixaban 5 mg Tablet PO (09:25)
[2019-06-15] MEDS: aspirin 81 mg EC Tablet PO (09:25)
--- NOTE | 2019-06-15 11:04 | PC.CHAP ---
Pastoral Care Encounter/Spiritual Assessment Type of Contact [] Declined rail track maintainer visit [] Patient/Family/Request visit [] Outpatient visit [] Follow-up visit [] Physician referral [] Code/Alert [x] Routine visit [] Staff referral [] Actively dying [] Patient sleeping [] Family support [] [] Out of room [] Palliative care [] [] Receiving care in room [] Pre-surgical visit [] Trauma [] Long length of stay [] ICU visit [] Other: Relational/Emotional Strength [x] Patient feels connected with others/family/visitors/staff [] Distress [] Loneliness/isolation [] Abandonment Spirituality of Patient [x] Person of Kandi [x] Attends Latter Day of their Kandi [x] Believes in Prayer x[] Reads Bible or Rastafarian materials [] There are Spiritual issues to be addressed Production Boring Machine Operator Interventions [x] Prayer [x] Active listening [x] Non-anxious presence [x] Spiritual/emotional support [] Crisis/trauma care [] Spiritual counseling [] Bereavement support [] Provided bereavement packet [] Provided Bible/devotional materials [] Provided toy/stuffed animal, coloring book to patient or family member [] Provided Communion [] Anointing/[place] [] Salvation [x] Completed spiritual assessment [] Other: Impact on Illness or Injury [] Angry [] Fearful [] Anxious [] Often cries [] Exhaustion [] Unable to work [] Unable to attend hindu [] Unable to walk/stand [] Unable to read [] Unable to drive [] Unable to eat/drink [] Unable to sleep [] Unable to be with family [] Patient intubated [x] Other: Summary Patient was awaiting her release and daughter from [place]' arrival. Strong in kandi. Time spent with patient 5 minutes
[2019-06-15 11:15] LABS: Ferritin 41 ng/mL (15-150)
[2019-06-15 12:17] LABS: Hepatitis A Antibody IgM Non-Reactive (Nonreactive); Hepatitis B Core AB, Total Non-Reactive (Nonreactive); Hepatitis B Surface AB 3.5 (0-8.5); Hepatitis B Surface Antigen Non-Reactive (Nonreactive); Hepatitis C Virus Antibody Non-Reactive (Nonreactive)
--- NOTE | 2019-06-15 12:26 | PC.NURSE ---
Discharge information given per the physician's orders. Patient verbalized understanding and did not have any further questions. Printed Rx given to patient.
--- NOTE | 2019-06-15 12:40 | P.DS_ITS ---
Discharge Providers Date of Admission: 06/12/19 18:02 Date of Discharge: June 15, 2019 Attending Provider at Admission: Pilar Bolton DO Attending Provider at Discharge: Ronny Sierra MD Primary Care Provider: ANSHUL Au Diagnoses at Discharge Discharge Diagnosis (1) Atrial fibrillation with RVR: Status: Acute (2) Hypothyroid: Status: Acute (3) Abdominal pain: Status: Acute (4) Diarrhea: Status: Acute (5) SOB (shortness of breath): Status: Acute (6) Hyponatremia: Status: Acute Reason for Visit Reason for Visit: Reason For Visit: sob,weakness,swelling,diarrhea Hospital Course Discharge Summary: This is a 79-year-old female with a past medical history of hypothyroidism, who presented the emergency room of [facility] due to complaints of shortness of breath. Patient was admitted to [facility] due to shortness of breath secondary to atrial fibrillation with rapid ventricular response and new onset heart failure. For her atrial fibrillation with RVR, she was transitioned from IV Cardizem, to metoprolol, and Eliquis was started. On discharge patient remained in atrial fibrillation, heart rates between 80s to 110s, on metoprolol 50 twice daily. Patient was also discharged on Eliquis 5 mg p.o. twice daily. Patient was advised to monitor for lightheadedness or dizziness and if so please follow with primary care. Patient was advised that if she were to have bloody or black stools, or falls come back to the emergency room. For her atrial fibrillation, patient is to follow-up with cardiology as outpatient for consideration for cardioversion. For her new onset diastolic heart failure, echocardiogram was difficult to interpret given patient's A. fib with RVR, structurally normal mitral valve, patient received IV Lasix therapy, however developed an acute kidney injury secondary to diuresis. On discharge patient was advised to hold Lasix for the next 2 days, resume Lasix 20 mg every other day, with repeat CMP in 1 week, with a follow-up with her outpatient physician. Patient was advised that if she were to have worsening shortness of breath please come back to the emergency room. For patient's diarrhea and abdominal pain, CT scan of the abdomen showed mild fluid surrounding the proximal duodenum, considerations were duodenitis or peptic ulcer disease. Patient was offered general surgery outpatient follow-up here in [place], but she stated that she lived closer to [place] and that she will speak patient was advised to follow-up with a general surgeon near [place] for consideration of an EGD or colonoscopy. Physical Exam Const: COMMON NORMALS: no apparent distress and oriented x3 HENMT: COMMON NORMALS: normocephalic HEAD & SCALP: normocephalic Neck/C-Spine: COMMON NORMALS: no JVD Resp: COMMON NORMALS: normal respiratory effort, no retractions, no use of accessory muscles and clear to auscultation bilaterally AUSCULTATION: clear to auscultation bilaterally Cardio: COMMON NORMALS: no JVD, S1 normal heart sound and S2 normal heart sound RHYTHM: abnormal rhythm irregularly irregular HEART SOUNDS: S1 normal and S2 normal GI: COMMON NORMALS: normal to inspection, nondistended, normoactive bowel sounds, soft to palpation, non-tender, no hepatosplenomegaly, no masses and no bruits PALPATION: Yes soft and Yes no hepatosplenomegaly Extremity: COMMON NORMALS: normal capillary refill, no clubbing, cyanosis or edema, no calf tenderness and no pedal edema Neuro: COMMON NORMALS: oriented x3 Psych: COMMON NORMALS: mental status grossly normal Discharge Data Data Completed and Pending: Completed Studies During Hospitalization Category Date Time Status CT abdomen pelvis w con* [id number] Urge nt Cat Scan 06/12/19 14:25 Completed XR chest 1V nilda ble [id number] Urgent Exams 06/12/19 14:17 Completed CV echo complete* [id number] Routine Ultrasound 06/13/19 07:00 Completed Pending at discharge Category Date Time Status DAISY Profile Rheum atology Stat Lab 06/15/19 05:14 Received Labs from last 24 hours 06/15/19 06/15/19 06/15/19 05:14 05:14 05:14 WBC RBC Hgb Hct MCV MCH MCHC RDW Plt Count MPV Neut % (Auto) Lymph % (Auto) [place] % (Auto) Eos % (Auto) Baso % (Auto) Neut # (Auto) Lymph # (Auto) [place] # (Auto) Eos # (Auto) Baso # (Auto) Nucleated RBC % (a uto) Nucleated RBCs # Sodium 130 L Potassium 5.2 H Chloride 90 L Carbon Dioxide 29 Anion Gap 16.2 BUN 29 H Creatinine 1.6 H Glucose 76 Calculated Osmolal ity 266 L Calcium 8.8 Ferritin 41 Hepatitis A IgM Ab Non-reactive Hep Bs Antigen Non-reactive Hep Bs Antibody 3.5 Hep B Core Total A b Non-reactive Hepatitis C Antibo dy Non-reactive 06/15/19 05:14 WBC 8.0 RBC 3.86 L Hgb 10.5 L Hct 36.4 L MCV 94.3 MCH 27.2 L MCHC 28.8 L RDW 15.4 H Plt Count 257 MPV 11.4 H Neut % (Auto) 64.0 Lymph % (Auto) 22.8 [place] % (Auto) 12.0 Eos % (Auto) 0.5 Baso % (Auto) 0.4 Neut # (Auto) 5.1 Lymph # (Auto) 1.8 [place] # (Auto) 1.0 H Eos # (Auto) 0.0 Baso # (Auto) 0.0 Nucleated RBC % (a uto) 0 Nucleated RBCs # 0.0 Sodium Potassium Chloride Carbon Dioxide Anion Gap BUN Creatinine Glucose Calculated Osmolal ity Calcium Ferritin Hepatitis A IgM Ab Hep Bs Antigen Hep Bs Antibody Hep B Core Total A b Hepatitis C Antibo dy Vitals: Last Vital Signs Temp 98.7 F 06/15/19 11:26 Pulse 97 06/15/19 11:26 Resp 18 06/15/19 11:26 BP 113/72 06/15/19 11:26 Pulse Ox 95 06/15/19 11:26 Discharge Plan Discharge Patient Disposition: Home, Self-Care Condition: Stable Prescriptions: New atorvastatin 40 mg Tablet 40 mg PO BEDTIME 30 Days Qty: 30 RF: 0 aspirin 81 mg Tablet,Delayed Release (Dr/Ec) 81 mg PO DAILY 30 Days Qty: 30 RF: 0 furosemide 20 mg Tablet See Rx Instructions .ROUTE .COMPLEX Qty: 30 RF: 0 Eliquis 5 mg Tablet 5 mg PO Q12H 30 Days Qty: 60 RF: 0 potassium chloride 10 mEq Tablet Extended Release 20 meq PO DAILY 30 Days Qty: 30 RF: 0 metoprolol tartrate 50 mg Tablet 50 mg PO BID 30 Days Qty: 60 RF: 0 Continued omeprazole 20 mg capsule,delayed release(DR/EC) 20 mg PO DAILY RF: 0 Carditone 1 tab PO EVERY OTHER DAY RF: 0 Changed Tylenol Extra Strength 500 mg Tablet 500 mg PO BID PRN (Reason: pain) Qty: 0 RF: 0 Discontinued furosemide [Lasix] 20 mg tablet 20 mg PO DAILY Qty: 7 RF: 0 levofloxacin [Levaquin] 750 mg tablet 750 mg PO DAILY Qty: 5 RF: 0 aspirin 325 mg Tablet 325 mg PO DAILY RF: 0 Discharge Orders: Discharge Order (Routine); Ordered 06/15/19 Ordered By: Ronny Sierra Other Ambulatory Orders: Comprehensive Metabolic Panel (Routine) Timeframe: 1 Week Facility: [facility] - Location: Lab - Main Lab Ordered By: Ronny Sierra Referrals: Ran Hauser MD [Physician] - 07/27/19 4:00 pm Sudha Jeffers MD [Physician] - 06/19/19 10:00 am Discharge Diet: Cardiac Discharge Activity: Resume usual activity Patient Instructions: Metoprolol (By mouth), Furosemide (By mouth), Potassium Chloride (By mouth), Aspirin (By mouth), Atorvastatin (By mouth), Apixaban (By mouth), Congestive Heart Failure, Atrial Fibrillation (DC), Acute Kidney Injury (DC) Activity Restrictions/Additional Instructions: -Please follow-up with primary care in 1 week, repeat CMP in 1 week -Hold Lasix for 2 days, resume every other day -Take metoprolol as prescribed, if you feel lightheaded or dizzy please call primary care -Please take Eliquis as prescribed, if you have bloody or black stools or hematu teresa, or falls, please go to the emergency room Discharge Date/Time: 06/15/19 12:30 Discharge Attestations Time Spent in Discharge Care*: less than 30 min Quality Metrics Clinical Quality Measures During this hospital stay, did patient experience: None Coding Level of Care Code Acute Manager Of Engineering for Chg Fwd Diagnoses Atrial fibrillation with RVR I48.91 Hypothyroid E03.9 Abdominal pain R10.9 Diarrhea R19.7 SOB (shortness of breath) R06.02 Hyponatremia E87.1
== END 2019-06-15 12:30 | disposition home or self-care (01) | DRG 308 ==
LOC: ER 14:32 → ICU 21:18 → MEDSURG 06-13 10:14
PROVIDERS: Admitting Provider Family Medicine; Emergency Provider Emergency Medicine; PCP Nurse Practitioner Family; Visit Provider Family Medicine
DX: I48.91 Unspecified atrial fibrillation (principal); I50.31 Acute diastolic (congestive) heart failure; E87.1 Hypo-osmolality and hyponatremia; R19.7 Diarrhea, unspecified; E03.9 Hypothyroidism, unspecified; Z79.82 Long term (current) use of aspirin; Z66 Do not resuscitate; Z85.41 Personal history of malignant neoplasm of cervix uteri; G47.33 Obstructive sleep apnea (adult) (pediatric); I11.0 Hypertensive heart disease with heart failure; Z87.891 Personal history of nicotine dependence
CPT/HCPCS: 12345; 36415; 71045; 74177; 80048; 80053; 80061; 82728; 83605; 83735; 83880; 84443; 84484; 85025; 86705; 86706; 86709; 86803; 87340; 87493; 87506; 93005; 93306; 94640; 94664; 96372; 96374; 96375; 97110; 97116; 97161; 99284; C9113; J1650; J1940; J3490; Q9967